=== PATIENT | male | born 1940 | race Caucasian/White ===

== ENCOUNTER → 2016-05-25 | Outpatient (CLI) | payer MEDICARE ==
[~2016-05-25] MED LIST: ACETAMINOPHEN PO; ACETAMINOPHEN325 MG PO; ALBUTEROL17 GM INH; ALBUTEROL17 GM PO; ALLOPURINOL300 MG PO; AMARYL2 MG PO; ASACOL400 MG PO; ASPIRIN; ASPIRIN PO; ASPIRIN81 M1 PO; ASPIRIN81 M2 PO; ASPIRIN81 MG PO; ASPIRINBUFF; ASPIRINEC PO; BAYER CHEWABLE81 MG PO; CENTRUM SILVER PO; CIPRO PO; CITRACAL200 MG; CITRACAL200 MG PO; CLARITIN5 MG PO; CLOPIDOGREL75 MG PO; COLACE PO; COMBIVENT INH14.7 GM INH; COMBIVENT U/D3 ML INH; CYANOCOBAL1000 MCG/M INJ; CYANOCOBAL1000 MCG/M SUBQ; DIATX TABLET5 MG PO; FLAGYL PO; FLOMAX0.4 M1 DOB; FLOMAX0.4 M1 PO; FLOMAX0.4 MG; FLOMAX0.4 MG PO; FLONASE16 GM; FLOVENT DI50 MCG/DIS INH; FOLIC ACID PO; FOLIC ACID1 MG PO; FUROSEMIDE40 MG PO; HYDROCODON-ACE1 EAC5 PO; HYDROCODONE-A1 UDTA2 PO; HYDROCODONE-APA1 T61 PO; IMDUR; IMDUR PO; KLONOPIN PO; KLONOPIN0.5 M2 PO; LEVAQUIN250 MG PO; LEXAPRO PO; LEXAPRO20 MG PO; LINZESS290 MCG PO; LISINOPRIL PO; LISINOPRIL20 MG PO; LOMOTIL TABLET1 TAB PO; LOPRESSOR PO; MAGNESIUM400 MG PO; MAXZIDE 75/50 T1 TAB; MAXZIDE 75/50 T1 TAB PO; MEDROL PO; METHOTREXATE INJ; METHOTREXATE SUBQ; METHOTREXATE2.5 MG; METHOTREXATE2.5 MG IM; METHOTREXATE2.5 MG PO; METHOTREXATE25 MG/M3 SUBQ; METOPROLOL TAR25 MG PO; MIRALAX17 GM PO; MOBIC; MULTI VITAMIN1 EACH PO; NEXIUM; NEXIUM PO; NITROGLYCERIN0.4 MG SL; NITROQUICK0.4 MG SL; NITROSTAT0.4 MG SL; NORCO 5/325 TAB1 TAB PO; NORVASC PO; OXYGEN INH; PAROXETINE HCL20 M1 PO; PAXIL PO; PHENERGAN PO; PHENERGAN25 MG PO; PLAQUENIL200 MG PO; PLAVIX PO; PREDNISONE PO; PREDNISONE1 MG PO; PREDNISONE10 MG PO; PREDNISONE5 M1 DOB; PRINIVIL20 M1 PO; PROTONIX PO; ROBAXIN500 MG PO; SIMVASTATIN40 MG PO; SINGULAIR PO; SPIRIVA18 MCG INH; SUPER B-50 COMP1 CAP PO; SYMBICORT INH; SYMBICORT PO; THERAPEUTIC-M1 EAC2 PO; TOPROL XL; TOPROL XL 50 MG50 MG PO; TOPROL XL PO; TOPROL XL50 MG PO; VICODIN PO; VIT B-12 IM; VITAMIN B12; VITAMIN B12 SHOT; VITAMIN B12 SQ; VITAMIN C500 M2 PO; VITAMIN D31000 UNI1 PO; VITAMIN D31000 UNI2 PO; WELCHOL625 MG PO; ZANTAC150 MG PO; ZESTORETIC 10/11 TAB PO; ZITHROMAX PO; ZOCOR PO; ZYLOPRIM100 MG PO; [UNRECOGNIZED DRUG - REMARK]
--- NOTE | ~2016-05-25 | CT2 ---
[facility] A Service [facility] RADIOLOGY TEXT RESULTS PATIENT: BRADLEY HERNANDES LOCATION: [facility] : 41 UNIT #: [id number] AGE: [address]: Andre Mora MD SEX: M ORDER DR: [id number] [facility] [address] [place], [place] [address] [id number] O MR#: [id number] Acc #: [id number] NAME: BRADLEY HERNANDES : 1940 SEX: M STUDY DATE/TIME: 05/25/2016 8:16 UNIT: [facility] ROOM: STUDY DESCRIPTION: CT Abd and Pelv W Cont Attending Physician: Andre Mora M.D. Ordering Physician: Andre Mora M.D. Primary Care Physician: Liu Shannon M.D. MEDICAL IMAGING REPORT This report is preliminary unless electronic signature is present EXAM CT abdomen and pelvis with contrast. INDICATIONS Restaging lung cancer. Observation for metastatic disease and disease progression. TECHNIQUE Computer contrast-enhanced CT of the abdomen and pelvis. 100 mL of Isovue-370. This CT exam was performed with one or more of the following radiation dose reduction techniques: automatic exposure control, adjustment of mA and/or kV according to patient size, and iterative reconstruction. COMPARISON 07/07/2015. FINDINGS Refer to the separately dictated chest CT for thoracic findings. Abdomen with contrast: Liver has cirrhotic morphology. No liver mass on this single-phase study. Spleen, adrenal glands, pancreas, gallbladder unremarkable. There are bilateral renal cysts, that are not significantly changed. The bowel loops are nondilated. Moderate colonic stool. Pelvis with contrast. No pelvic mass or fluid. No aggressive appearing bone lesion. IMPRESSION 1. No convincing evidence for metastatic disease in the abdomen or pelvis. 2. Cirrhotic morphology of the liver and renal cysts. [facility] A Service [facility] RADIOLOGY TEXT RESULTS PATIENT: BRADLEY HERNANDES LOCATION: [facility] : 41 UNIT #: [id number] AGE: [address]: Andre Mora MD SEX: M ORDER DR: Dictated by... Brad Walker M.D. THIS IS AN ELECTRONICALLY VERIFIED REPORT Brad Walker M.D. at 05/26/2016 10:02 AM LUCIO/leobardo TD: 05/25/2016 13:24 JOB #: [id number] MEDICAL IMAGING REPORT Page 1 of 1 COPY
--- NOTE | ~2016-05-25 | CT55 ---
[facility] A Service [facility] RADIOLOGY TEXT RESULTS PATIENT: BRADLEY HERNANDES LOCATION: [facility] #: [id number] : 42 UNIT #: [id number] AGE: [address]: Andre Mora MD SEX: M ORDER DR: [id number] [facility] [address] [place], [place] [address] [id number] O MR#: [id number] [facility] #: [id number] NAME: BRADLEY HERNANDES : 1940 SEX: M STUDY DATE/TIME: 05/25/2016 8:16 UNIT: [facility] ROOM: STUDY DESCRIPTION: CT Chest W Con Attending Physician: Andre Mora M.D. Ordering Physician: Andre Mora M.D. Primary Care Physician: Liu Shannon M.D. MEDICAL IMAGING REPORT This report is preliminary unless electronic signature is present EXAM CT chest with contrast INDICATIONS Restaging lung cancer. Observation for metastatic disease. PROCEDURE Contrast-enhanced CT of the chest. 100 mL of Isovue-370. COMPARISON 02/18/[address] exam was performed with one or more of the following radiation dose reduction techniques: automatic exposure control, adjustment of mA and/or kV according to patient size, and iterative reconstruction. FINDINGS Previous left lower lobectomy. There is some new ground-glass opacity in the left lung base. There is also some new ground-glass opacity in the medial right lower lobe. There is no new dense consolidation. No new true pulmonary nodule. Coronary artery calcification and previous stenting. A few mildly prominent mediastinal lymph nodes are stable. No new or enlarging adenopathy in the chest. No aggressive appearing bone lesion. IMPRESSION 1. Previous left lower lobectomy. No evidence for metastatic disease or disease progression in the chest. 2. There are a few small areas of new ground-glass opacity in the left lung base and medial right lower lobe. These are favored to represent infectious or inflammatory change. Correlate with any [facility]. [facility] A Service [facility] RADIOLOGY TEXT RESULTS PATIENT: BRADLEY HERNANDES [id number] 41 UNIT #: [id number] AGE: [address]: Andre Mora MD SEX: M ORDER DR: current symptoms. Consider attention on followup to document improvement. Dictated by... Brad Walker M.D. THIS IS AN ELECTRONICALLY VERIFIED REPORT Brad Walker M.D. at 05/26/2016 10:02 AM LUCIO/catie TD: 05/25/2016 13:36 JOB #: [id number] MEDICAL IMAGING REPORT Page 1 of 1 COPY
[2016-05-25 12:29] LABS: POC - CREATININE 0.92 mg/dL (0.64-1.27); POC - GFR >60.0 mL/min (>60)
== END | disposition home or self-care (01) ==
LOC: CCAT 07:38
PROVIDERS: Internal Medicine Hematology
DX: C34.90 Malignant neoplasm of unspecified part of unspecified bronchus or lung (principal); E83.119 Hemochromatosis, unspecified; N28.1 Cyst of kidney, acquired; R91.8 Other nonspecific abnormal finding of lung field; K74.60 Unspecified cirrhosis of liver
CPT/HCPCS: 71260; 74177; 82565; Q9967

== ENCOUNTER → 2016-08-27 | Outpatient (CLI) | payer MEDICARE ==
--- NOTE | ~2016-08-27 | CT57 ---
[facility] A Service of [facility] RADIOLOGY TEXT RESULTS PATIENT: BRADLEY HERNANDES [facility] [id number] 41 UNIT #: [id number] AGE: [address]: Raphael Salvador MD SEX: M ORDER DR: [id number] [facility] [address]. [place], [place] [address] [id number] O MR#: [id number] [facility] #: [id number] NAME: BRADLEY HERNANDES : 1940 SEX: M STUDY DATE/TIME: 08/27/2016 13:14 UNIT: [facility] ROOM: STUDY DESCRIPTION: CT Chest Wo Cont Attending Physician: Raphael Salvador M.D. Referring Physician: Raphael Salvador M.D. Ordering Physician: Raphael Salvador M.D. Primary Care Physician: Liu Shannon M.D. MEDICAL IMAGING REPORT This report is preliminary unless electronic signature is present EXAM CT chest. INDICATION Left lower lobe lung cancer. Restaging. Observation for metastatic disease, status post left lower lobectomy. TECHNIQUE CT of the chest without contrast. Coronal and sagittal reconstructions were obtained. This CT exam was performed with one or more of the following radiation dose reduction techniques: automatic exposure control, adjustment of mA and/or kV according to patient size, and iterative reconstruction. COMPARISON CT chest dated 05/25/2016 and 02/18/2016. FINDINGS Patient status post left lower lobectomy. No recurrent or residual mass is identified. There is background emphysema. Central airways are patent. There is no pathologically enlarged mediastinal or hilar lymph nodes. A few borderline enlarged lymph nodes in the AP window and in the anterior mediastinum are unchanged. No pericardial or pleural effusion. The liver is cirrhotic. IMPRESSION 1. Postsurgical change of left lower lobectomy. No evidence of recurrent or residual malignancy. 2. Tiny 3 mm pulmonary nodule in the anterior aspect of the right upper lobe is unchanged from 10/30/2014, and considered benign. [facility] A Service of [facility] RADIOLOGY TEXT RESULTS PATIENT: BRADLEY HERNANDES LOCATION: [facility] : 41 UNIT #: [id number] AGE: [address]: Raphael Salvador MD SEX: M ORDER DR: Dictated by... Micah Redmond M.D. THIS IS AN ELECTRONICALLY VERIFIED REPORT Micah Redmond M.D. at 08/28/2016 11:04 AM CHRISTIANO/maureen TD: 08/27/2016 18:01 JOB #: [id number] MEDICAL IMAGING REPORT Page 1 of 1 COPY
== END | disposition home or self-care (01) ==
LOC: CCAT 12:38
DX: C34.90 Malignant neoplasm of unspecified part of unspecified bronchus or lung (principal); R91.8 Other nonspecific abnormal finding of lung field; Z98.890 Other specified postprocedural states
CPT/HCPCS: 71250